=== PATIENT | male | born 1985 | race Caucasian/White ===

== ENCOUNTER 2017-09-11 19:34 | Emergency (ER) | payer MEDICAID ==
[~2017-09-11] VITALS: Ht 167.6 cm; Wt 113.5 kg
[2017-09-11] MEDS ORDERED: EPINEPHRINE 1 MG/ML, 1ML ONE (19:40)
[2017-09-11] MEDS ORDERED: FAMOTIDINE 20 MG/2 ML ONE (19:41)
[2017-09-11] MEDS ORDERED: DIPHENHYDRAMINE 50 MG/ML, 1ML ONE (19:41)
[2017-09-11 19:57] LABS: MEAN CORPUSCULAR HEMOGLOBIN 29.8 pg (27.5-34.5); MEAN CORPUSCULAR HGB CONC 32.8 g/dL (33.2-36.2); MEAN CORPUSCULAR VOLUME 91.1 fL (81-97); MEAN PLATELET VOLUME 7.5 fL (7.4-10.4); PLATELET COUNT 354 x10^3/uL (130-400); RED BLOOD COUNT 5.42 x10^6/uL (4.38-5.82); RED CELL DISTRIBUTION WIDTH 13.2 % (9.4-14.8)
[2017-09-11] MEDS ORDERED: EPINEPHRINE 1 MG/ML, 1ML IM ONE (20:00)
[2017-09-11] MEDS ORDERED: FAMOTIDINE 20 MG/2 ML IVPush ONE (20:00)
[2017-09-11] MEDS ORDERED: SODIUM CHLORIDE 0.9% 1,000ML IVBOLUS ONE (20:00)
[2017-09-11] MEDS ORDERED: DIPHENHYDRAMINE 50 MG/ML, 1ML IVPush ONE (20:00)
[2017-09-11 20:10] LABS: ALANINE AMINOTRANSFERASE 96 U/L (12-78); ALBUMIN 3.8 g/dL (3.4-5.0); ANION GAP 12 mmol/L (5-15); CALCIUM 8.7 mg/dL (8.5-10.1); CHLORIDE 106 mmol/L (98-107); CREATININE 1.39 mg/dL (0.7-1.3)
[2017-09-11 20:12] LABS: ALKALINE PHOSPHATASE 70 U/L (45-117); BILIRUBIN,TOTAL 0.2 mg/dL (0.2-1.0); TOTAL PROTEIN 7.5 g/dL (6.4-8.2)
[2017-09-11 20:19] LABS: MICROSCOPIC INDICATED
[2017-09-11 20:20] LABS: CULTURE INDICATED? YES
[2017-09-11 20:54] LABS: MD YES
[2017-09-11 21:02] LABS: LYMPH#(MANUAL) 4.46 x10^3/uL (1-3.4); LYMPHS% (MANUAL) 33 % (22-44); MONOS#(MANUAL) 0.27 x10^3/uL (0.3-2.7); MONOS% (MANUAL) 2 % (2-9); REACTIVE LYMPHS # (MANUAL) 1.76 x10^3/uL (0-0); REACTIVE LYMPHS % (MANUAL) 13 % (0-0); SEG#(MANUAL) 7.02 x10^3/uL (1.8-6.8); SEGS% (MANUAL) 52 % (42-75)
[2017-09-11 21:03] LABS: <PLATELET ESTIMATE> ADEQUATE; <PLT MORPHOLOGY> NORMAL PLT MORPH; <RBC MORPHOLOGY> NORMAL
[2017-09-11 21:42] VITALS: BP 110/60
[2017-09-11] MEDS ORDERED: OMNIPAQUE 350 MG/ML, 100ML BOTTLE ONE (21:52)
== END 2017-09-11 22:39 | disposition home or self-care (01) ==
LOC: ED 22:25
DX: N30.00 Acute cystitis without hematuria (principal); T78.00XA Anaphylactic reaction due to unspecified food, initial encounter
CPT/HCPCS: 36415; 74177; 80053; 81001; 83690; 85025; 87086; 93005; 96361; 96372; 96374; 96375; 99285; J0171; J1200; J7030; Q9967; S0028

== ENCOUNTER 2018-08-29 21:02 | Emergency (ER) | payer MEDICAID ==
[~2018-08-29] VITALS: Ht 167.6 cm; Wt 90.0 kg
--- NOTE | 2018-08-29 21:16 | NUR ---
PT TO ROOM VIA W/C FROM TRIAGE.
--- NOTE | 2018-08-29 21:28 | NUR ---
PT REPORTS HAVING BODY ACHES, SORE THROAT, COUGH, RUNNY NOSE, CONGESTION, AND SUBJECTIVE FEVER AT HOME X1 WEEK. PT REPORTS HAVING NAUSEA BUT DENIES V/D. PT ASKED FOR FOOD, PT INFORMED TO WAIT TO EAT UNTIL MD PLAZA. PT AGREED. PT ASKED FOR BLANKET, ELEVATED TEMP IN TRIAGE, SHEET GIVEN TO PT INSTEAD OF BLANKET. PT A/OX4, BREATHING RR26 BUT BREATHING UNLABORED. PT CONVERSING WELL IN FULL SENTENCES, CALM AND COOPERATIVE. PT STATES LAST USE OF METH X24 HOURS AGO. PT RESTING IN BED WITH FRIENDS AT BEDSIDE, AWAITING MD PLAZA.
--- NOTE | 2018-08-29 21:33 | NUR ---
LAB TO BEDSIDE FOR PT BLOOD DRAW.
--- NOTE | 2018-08-29 21:40 | NUR ---
PT STATES LAST NO TYLENOL TAKEN.
[2018-08-29] MEDS ORDERED: ACETAMINOPHEN 500 MG TABLET ONE (21:43)
--- NOTE | 2018-08-29 21:47 | NUR ---
PT RECIEVED TYLENOL PER ORDERS, SEE EMAR. PT TOOK WITHOUT DIFFICULTY. PT GIVEN CUP OF ICE WATER TO SIP ON, PT VERABLIZED UNDERSTANDING. PT HAS HACKING NONPRODUCTIVE DRY COUGH WHILE THIS RN IN ROOM. WILL CONTINUE TO MONITOR.
[2018-08-29 21:49] LABS: BASOPHILS # (AUTO) 0.13 x10^3/uL (0-0.1); BASOPHILS % (AUTO) 1 % (0-1); EOSINOPHILS # (AUTO) 0.11 x10^3/uL (0-0.4); EOSINOPHILS % (AUTO) 1 % (1-7); LYMPHOCYTES # (AUTO) 1.93 x10^3/uL (1-3.4); LYMPHOCYTES % (AUTO) 12 % (22-44); MD NO; MEAN CORPUSCULAR HEMOGLOBIN 29.2 pg (27.5-34.5); MEAN CORPUSCULAR HGB CONC 34.2 g/dL (33.2-36.2); MEAN CORPUSCULAR VOLUME 85.6 fL (81-97); MEAN PLATELET VOLUME 7.3 fL (7.4-10.4); MONOCYTES # (AUTO) 0.96 x10^3/uL (0.2-0.8); MONOCYTES % (AUTO) 6 % (2-9); NEUTROPHILS # (AUTO) 12.86 x10^3/uL (1.8-6.8); NEUTROPHILS % (AUTO) 81 % (42-75); PLATELET COUNT 350 x10^3/uL (130-400); RED BLOOD COUNT 4.81 x10^6/uL (4.38-5.82); RED CELL DISTRIBUTION WIDTH 13.4 % (9.4-14.8)
--- NOTE | 2018-08-29 21:58 | NUR ---
PT TO XRAY VIA [facility]ISON.
[2018-08-29 22:00] LABS: ALANINE AMINOTRANSFERASE 29 U/L (12-78); ALBUMIN 2.9 g/dL (3.4-5.0); ANION GAP 8 mmol/L (5-15); CALCIUM 8.3 mg/dL (8.5-10.1); CHLORIDE 104 mmol/L (98-107); CREATININE 1.21 mg/dL (0.7-1.3)
[2018-08-29] MEDS ORDERED: ACETAMINOPHEN 500 MG TABLET PO ONE (22:00)
[2018-08-29 22:03] LABS: ALKALINE PHOSPHATASE 87 U/L (45-117); BILIRUBIN,TOTAL 0.2 mg/dL (0.2-1.0); TOTAL PROTEIN 7.3 g/dL (6.4-8.2)
--- NOTE | 2018-08-29 22:25 | NUR ---
TEMP HAS DECREASED SLIGHTLY, 99.8 AT THIS TIME. PT RESTING COMFORTABLY, BREATHING E/U. PT TOLERATED ICE WATER WELL, NO N/V. WILL CONTINUE TO MONITOR.
--- NOTE | 2018-08-29 22:36 | NUR ---
MD TO BEDSIDE FOR PT UPDATE. PT TO HAVE BLOOD CULTURES, FLUIDS, AND IV ABX.
--- NOTE | 2018-08-29 22:44 | NUR ---
IV PLACED, PT TO HAVE NS. ROCEPHIN WHEN BLOOD CULTURES DRAWN.
--- NOTE | 2018-08-29 22:53 | NUR ---
ns infusing without difficulty. blood cultures drawn. pt to have rocephin.
[2018-08-29] MEDS ORDERED: CEFTRIAXONE PMX 1GM/50ML 50 ML ONE (22:59)
[2018-08-29] MEDS ORDERED: CEFTRIAXONE PMX 1GM/50ML 50 ML IV ONE (23:00)
[2018-08-29] MEDS ORDERED: SODIUM CHLORIDE 0.9% 1,000ML IVBOLUS ONE (23:00)
[2018-08-29 23:11] VITALS: BP 116/69
--- NOTE | 2018-08-29 23:12 | NUR ---
abx infusing. while pt sleeping o2 sat decreased to high 80's. pt placed on 2L o2 via nc. pt o2 increased to low 90's. pt continues to sleep, arousable easily by verbal stimulus. VSS otherwise. will continue to monitor.
--- NOTE | 2018-08-29 23:40 | NUR ---
ROCEPHIN COMPLETE. NS INFUSING WITHOUT DIFFICULTY. NO CHANGES WITH PT. NO ACUTE DISTRESS NOTED.
--- NOTE | 2018-08-29 23:55 | NUR ---
MD TO BEDSIDE FOR PT UPDATE COMPLETE. PT TO D/C.
== END 2018-08-30 00:16 | disposition home or self-care (01) ==
LOC: ED 22:07
DX: A41.9 Sepsis, unspecified organism (principal); J15.8 Pneumonia due to other specified bacteria; J45.909 Unspecified asthma, uncomplicated
CPT/HCPCS: 36415; 71046; 80053; 83605; 83735; 85025; 86592; 86780; 87040; 87806; 96365; 99284; J0696; J7030; G0475